=== PATIENT | female | born 1950 | race Caucasian/White ===

== ENCOUNTER 2017-04-17 14:53 | Inpatient (IN) | payer MEDICARE, OTHER ==
[~2017-04-17] VITALS: Ht 170.2 cm; Wt 132.3 kg
[2017-05-03] MEDS ORDERED: ASPI81CH7 CHEW (09:44)
[2017-05-03] MEDS ORDERED: ATOR20TA15 PO (09:44)
[2017-05-03] MEDS ORDERED: DOXE50CA3 PO (09:44)
[2017-05-03] MEDS ORDERED: BACL10TA PO (09:44)
[2017-05-03] MEDS ORDERED: COUM7.5T PO (09:44)
[2017-05-03] MEDS ORDERED: CYCL1TAB29 PO (09:47)
[2017-05-03] MEDS ORDERED: FLUT50SP EACH NARE (09:47)
[2017-05-03] MEDS ORDERED: FLAX10002 PO (09:47)
[2017-05-03] MEDS ORDERED: ENAL20TA PO (09:47)
[2017-05-03] MEDS ORDERED: SODIUM CHLOR 0.9% 250 ML INJ 250 ML ONE (09:48)
[2017-05-03] MEDS ORDERED: VANCOMYCIN HCL 1000 MG VIAL ONE (09:49)
[2017-05-03] MEDS ORDERED: LACTATED RINGER'S 1000 ML INJ 1,000 ML ONE (09:49)
[2017-05-03] MEDS ORDERED: POTA-255 PO (09:54)
[2017-05-03] MEDS ORDERED: MONT10TA2 PO (09:54)
[2017-05-03] MEDS ORDERED: HYDR-3535 PO (09:54)
[2017-05-03] MEDS ORDERED: NIAC500T67 PO (09:54)
[2017-05-03] MEDS ORDERED: MELA1TAB40 (09:54)
[2017-05-03] MEDS ORDERED: BENA25CA4 PO (09:54)
[2017-05-03] MEDS ORDERED: BUPR150CR PO (09:54)
[2017-05-03] MEDS ORDERED: FERR65TA2 PO (09:54)
[2017-05-03] MEDS ORDERED: ceFAZolin 2 GM PREMIX 50 ML ONE (09:55)
[2017-05-03] MEDS ORDERED: GENTAMICIN SULFATE 80 MG/2 ML VIAL ONE ×3 (09:56→10:07)
[2017-05-03 10:00] VITALS: BP 140/86; PULSE 82; RESP 24; TEMP 97.4; O2SAT 97
[2017-05-03] MEDS ORDERED: ROPIVACAINE PERI-ARTICULAR INJECTION. P-ARTICULR SCH ×5 (10:30)
[2017-05-03] MEDS ORDERED: ceFAZolin 2 GM PREMIX 50 ML IV SCH (10:30)
[2017-05-03] MEDS ORDERED: VANCOMYCIN 1000 MG/NS 250 ML (for <70 kg) IV SCH ×2 (10:30)
[2017-05-03] MEDS ORDERED: CHLORHEXIDINE GLUCONATE 4% SOLN 120 ML BTL TOPICAL SCH (10:30)
[2017-05-03] MEDS ORDERED: ACETAMINOPHEN 1000 MG/100 ML VIAL IV ONE (10:41)
[2017-05-03] MEDS ORDERED: MIDAZOLAM HCL 2 MG/2 ML VIAL ONE ×2 (10:41→13:46)
[2017-05-03] MEDS ORDERED: FAMOTIDINE 20 MG/2 ML VIAL ONE (10:42)
[2017-05-03] MEDS ORDERED: METOPROLOL TARTRATE 25 MG TAB PO PRN (10:45)
[2017-05-03] MEDS ORDERED: LACTATED RINGER'S 1000 ML IV PRN (10:45)
[2017-05-03] MEDS ORDERED: INSULIN HUMAN REGULAR 1,000 UNITS/10 ML VIAL SQ PRN (10:45)
[2017-05-03] MEDS ORDERED: SODIUM CHLORID 0.9% 500 ML IV PRN (10:45)
[2017-05-03] MEDS ORDERED: POVIDONE IODINE 5% (ANTISEPSIS KIT) 4 APPLICATIONS EACH NARE PRN (10:45)
[2017-05-03] MEDS ORDERED: CHLORHEXIDINE GLUCONATE 2 % 1 PACK (2 CLOTHS) TOPICAL PRN (10:45)
[2017-05-03] MEDS ORDERED: BUPIVACAINE LIPOSOME PF 1.3% 20 ML VIAL ONE (11:03)
[2017-05-03] MEDS ORDERED: ePHEDrine/NS 25 MG/5 ML SYR IV ONE (13:21)
[2017-05-03] MEDS ORDERED: NEOSTIGMINE 3 MG/3 ML SYR IV ONE (13:21)
[2017-05-03] MEDS ORDERED: PROPOFOL 200 MG/20 ML AMP IV ONE (13:21)
[2017-05-03] MEDS ORDERED: PHENYLEPH/NS 1000 MCG/10 ML SYR IV ONE (13:22)
[2017-05-03] MEDS ORDERED: LACTATED RINGER'S 1000 ML INJ 1,000 ML IV ONE (13:22)
[2017-05-03] MEDS ORDERED: ONDANSETRON HCL 4 MG/2 ML VIAL IV PUSH ONE (13:22)
[2017-05-03] MEDS ORDERED: Post-op Orders (for Pharmacy) MISC XX ONE (13:35)
--- NOTE | 2017-05-03 13:40 | HHI.PR ---
Immediate Post Op Note Procedure Date: May 03, 2017 Pre Op Diagnosis: L Knee Severe OA Post Op Diagnosis: Same Surgeon: Renato Dixon MD Supervisor Inspection Room(s): Heather Wesley PA-C Procedure: L TKR Complications: None Specimen(s) removed: None Estimated blood loss: <50 cc Anesthesia: General, Regional Block, Local Drains: Hemovac Patient to: PACU Patient Condition: Good Implant/Devices: SEE IMPLANT LOG (if applicable) Date/Time of Procedure: SEE SURGICAL CARE RECORD Renato Dixon MD May 03, 2017 13:40
[2017-05-03] MEDS: LACTATED RINGER'S 1000 ML INJ 1,000 ML IV SCH (13:43)
[2017-05-03] MEDS ORDERED: SODIUM CHLORIDE 0.9% FLUSH 5 ML FLUSH IVF PRN (13:45)
[2017-05-03] MEDS ORDERED: ALUMINUM/MAGNESIUM/SIMETH 30 ML CUP PO PRN (13:45)
[2017-05-03] MEDS ORDERED: ONDANSETRON HCL 4 MG/2 ML VIAL IVP PRN (13:45)
[2017-05-03] MEDS: SODIUM CHLORIDE 0.9% FLUSH 5 ML FLUSH IVF SCH ×2 (13:45→20:57)
[2017-05-03] MEDS ORDERED: ACETAMINOPHEN/HYDROcodone 325 MG/10 MG TAB PO PRN (13:45)
[2017-05-03] MEDS ORDERED: MORPHINE SULFATE 8 MG/ML INJ IM PRN (13:45)
[2017-05-03] MEDS ORDERED: fentaNYL CITRATE 250 MCG/5 ML AMP ONE (13:46)
[2017-05-03] MEDS ORDERED: WALKER WHEELS/F1 MIS (13:50)
[2017-05-03] MEDS ORDERED: CPMMACHINE (13:50)
[2017-05-03] MEDS ORDERED: BEDSIDE COMMODE1 MI1 (13:50)
[2017-05-03] MEDS ORDERED: DO NOT ADM ANY ANTICOAGULANT DRUGS PRN (14:15)
--- NOTE | 2017-05-03 14:52 | RADRPT ---
EXAM DATE/TIME: 05/03/2017 13:56 [place] COMPARISON: No previous studies available for comparison. INDICATIONS : Left total knee replacement. MEDICAL HISTORY : None. SURGICAL HISTORY : None. ENCOUNTER: Initial ACUITY: 1 day PAIN SCORE: 0/10 LOCATION: Left knee. FINDINGS: The patient is status post left total knee arthroplasty with prosthesis in good position. There is n o acute fracture or dislocation. CONCLUSION: Status post left total knee arthroplasty with prosthesis in good position. Hermelindo Dominguez MD on May 03, 2017 at 14:46 Board Certified Radiologist. This report was verified electronically.
[2017-05-03] MEDS ORDERED: *morphine SULFATE 8 MG/ML PERIprocedure ONLY ONE (15:08)
[2017-05-03 17:30] VITALS: BP 128/65; PULSE 88; RESP 18; TEMP 97.2; O2SAT 95
--- NOTE | 2017-05-03 17:52 | PD.CONS ---
[facility] By [facility] Care Physician Raúl Damon DO Diagnoses: History of Present Illness Mrs. Barfield is a 66 year old female. She is seen status post Left Knee TKA. Thus far she is doing well post op without nausea, vomiting, or lack of pain control. She has osteoarthritis at baseline. Other medical conditions are CKD3 , HTN, and Hyperlipidemia. She reports a surgical history of hysterectomy, tonsillectomy, right hand surgery and left elbow/arm surgery. No smoking, no lung or heart disease, no alcohol abuse and a family history of CAD. No complaints when seen. Review of Systems Constitutional: DENIES: Fatigue, Fever, Chills Eyes: DENIES: Blurred vision, Diplopia Ears, nose, mouth, throat: DENIES: Hearing loss, Vertigo Respiratory: DENIES: Cough, Wheezing, Shortness of breath Cardiovascular: DENIES: Palpitations, Syncope Gastrointestinal: DENIES: Abdominal pain, Black stools, Bloody stools Musculoskeletal: COMPLAINS OF: Joint pain Integumentary: DENIES: Abnormal pigmentation Hematologic/lymphatic: DENIES: Bruising Immunologic/allergic: DENIES: Eczema Neurologic: DENIES: Abnormal gait, Headache Psychiatric: DENIES: Anxiety, Confusion Past Family Social History Allergies: Coded Allergies: Neosporin (Verified Allergy, Severe, blisters, 05/03/17) Sulfa (Verified Allergy, Severe, rash, 05/03/17) Past Medical History CKD3 HTN Hyperlipidemia Osteoarthritis Past Surgical History Tonsillectomy Hysterectomy Left Elbow/Arm Right Hand Left Knee TKA (today) Reported Medications Reported Meds & Active Scripts Active Reported Wellbutrin SR 12 HR (Bupropion HCl) 150 Mg Tab 150 Mg PO HS Benadryl Allergy (Diphenhydramine HCl) 25 Mg Cap 1 Tab PO HS Singulair (Montelukast Sodium) 10 Mg Tab 10 Mg PO HS Potassium (Potassium Gluconate) 600 Mg Tablet 1 Tab PO DAILY Niacin (Niacinamide) 500 Mg Tablet 1 Tab PO DAILY Melatonin 1 Mg Tab.subl Hm Iron (Ferrous Sulfate Dried) 65 Mg Tab 65 Mg PO BID Lortab (Hydrocodone-Acetaminophen) 10-325 Mg Tab 1 Tab PO BID PRN Fluticasone Nasal Hubertus 50 Mcg/Act Naspr 50 Mcg EACH NARE HS 50 mcg/spray Flexeril (Cyclobenzaprine HCl) 10 Mg Tab 10 Mg PO TID Flax Seed Oil 1000 mg (Flaxseed (Linseed)) 1 Cap Cap 1,000 Mg PO DAILY Enalapril (Enalapril Maleate) 20 Mg Tab 20 Mg PO HS Doxepin (Doxepin HCl) 50 Mg Cap 100 Mg PO HS Coumadin (Warfarin) 7.5 Mg Tab 7.5 Mg PO ONCE Baclofen 10 Mg Tab 10 Mg PO TID Aspirin Children's (Aspirin) 81 Mg Chew 81 Mg CHEW DAILY Atorvastatin (Atorvastatin Calcium) 20 Mg Tab 20 Mg PO HS Active Ordered Medications Administered Medications Medications (Trade) Dose Ordered Sig/Logan Route PRN Reason Start Time Stop Time Status Last Admin Dose Admin Ropivacaine/ Ketorolac Tromethamine/ Epinephrine HCl/ Clonidine/Sodium Chloride (Naropin 0.5% Pf Inj/Toradol Inj/ Adrenalin (1:1000) Inj/ Duraclon Inj/NS Inj) 100 ml @ 200 mls/hr ONCE P-ARTICULR 05/03/17 10:30 05/04/17 10:29 05/03/17 12:06 Family History CAD Social History No Smoking No alcohol abuse No drug abuse Physical Exam Vital Signs Vital Signs Date Time Temp Pulse Resp B/P Pulse Ox O2 Delivery O2 Flow Rate FiO2 05/03/17 16:38 97.6 88 19 105/56 100 Nasal Cannula 2 05/03/17 16:06 89 19 133/60 98 Nasal Cannula 2 05/03/17 15:00 79 18 124/81 99 Nasal Cannula 2 05/03/17 14:30 79 20 126/83 100 Nasal Cannula 2 05/03/17 14:15 75 12 124/66 100 Nasal Cannula 2 05/03/17 14:00 77 16 123/63 100 Nasal Cannula 2 05/03/17 13:45 83 17 125/63 100 Nasal Cannula 2 05/03/17 13:38 97.5 84 17 116/58 100 Nasal Cannula 2 05/03/17 10:00 97.4 82 24 140/86 97 Physical Exam GENERAL: NAD, A&Ox3 SKIN: Warm and dry. HEAD: Normocephalic. EYES: No scleral icterus. No injection or drainage. NECK: Supple, trachea midline. No JVD or lymphadenopathy. CARDIOVASCULAR: Regular rate and rhythm without murmurs, gallops, or rubs. RESPIRATORY: Breath sounds equal bilaterally. No accessory muscle use. GASTROINTESTINAL: Abdomen soft, non-tender, nondistended. MUSCULOSKELETAL: No cyanosis, or edema. Left knee bandaged BACK: Nontender without obvious deformity. No CVA tenderness. Laboratory Laboratory Tests Test 05/03/17 09:39 Blood Type AB POSITIVE Antibody Screen NEGATIVE Crossmatch Leukocyte-Reduced Red Blood Cells Blood Bank Comment Imaging Last Impressions Knee X-Ray 05/03/17 1343 Signed Impressions: Service Date/Time: , May 03, 2017 13:56 - CONCLUSION: Status post left total knee arthroplasty with prosthesis in good position. Hermelindo Dominguez MD Assessment and Plan Problem List: (1) Osteoarthritis of left knee ICD Code: M17.12 Status: Acute (2) Osteoarthritis ICD Code: M19.90 Status: Acute (3) HTN (hypertension) ICD Code: I10 Status: Acute (4) HLD (hyperlipidemia) ICD Code: E78.5 Status: Acute (5) CKD (chronic kidney disease), stage III ICD Code: N18.3 Status: Acute Assessment and Plan Assessment and Plan 66 year old female, post op Left TKA post op Left TKA PRN pain treatment Ortho following PT planned CBC in AM CKD3 Follow renal function BMP in AM HTN Resume baseline treatments Follow BP Presently borderline low, so no PRN treatments needed at this time Hyperlipidemia Resume baseline treatments Follow as an outpatient DVT Prophylaxis Didier Dixon MD May 03, 2017 17:52
[2017-05-03] MEDS: BACLOFEN 10 MG TAB PO SCH (18:06)
[2017-05-03] MEDS: CYCLOBENZAPRINE HCL 10 MG TAB PO SCH (18:07)
[2017-05-03] MEDS: ACETAMINOPHEN/HYDROcodone 325 MG/10 MG TAB PO PRN (18:09)
[2017-05-03 19:00] VITALS: BP 131/75; PULSE 92; RESP 17; TEMP 96.9; O2SAT 95
[2017-05-03] MEDS: FLUTICASONE PROPIONATE 50 MCG/ACT 16 GM NASAL SPRAY EACH NARE SCH (20:57)
[2017-05-03] MEDS: DOXEPIN HCL 50 MG CAP PO SCH (20:58)
[2017-05-03] MEDS: FERROUS SULFATE 325 MG (65 MG ELEMENTAL IRON) TAB PO SCH (20:58)
[2017-05-03] MEDS: MONTELUKAST SODIUM 10 MG TAB PO SCH (20:58)
[2017-05-03] MEDS: ATORVASTATIN 20 MG TAB PO SCH (20:58)
[2017-05-03] MEDS: buPROPion HCL 150 MG SUSTAINED RELEASE TAB PO SCH (20:58)
[2017-05-03] MEDS: ENALAPRIL MALEATE 10 MG TAB PO SCH (20:58)
[2017-05-03] MEDS: diphenhydrAMINE HCL 25 MG CAP PO SCH (20:58)
[2017-05-04] VITALS (8 sets, daily range): BP systolic 91–143; BP diastolic 44–62; PULSE 80–100; RESP 16–20; TEMP 96.6–97.9; O2SAT 95–100
[2017-05-04] MEDS: ACETAMINOPHEN/HYDROcodone 325 MG/10 MG TAB PO PRN ×4 (00:09→20:37)
[2017-05-04] MEDS: ZOLPIDEM TARTRATE 5 MG TAB PO PRN ×2 (00:11→23:15)
[2017-05-04] MEDS: LACTATED RINGER'S 1000 ML INJ 1,000 ML IV SCH ×3 (02:13→21:48)
--- NOTE | 2017-05-04 06:55 | PD.ORT.PN ---
Subjective Subjective Remarks pt doing well, mild post op left knee pain was able get out of bed 3 times yesterday Objective Vitals Vital Signs Date Time Temp Pulse Resp B/P Pulse Ox O2 Delivery O2 Flow Rate FiO2 05/04/17 04:00 97.0 88 18 107/54 96 05/04/17 00:00 97.9 87 16 106/51 96 05/03/17 19:00 96.9 92 17 131/75 95 05/03/17 17:30 97.2 88 18 128/65 95 05/03/17 16:38 97.6 88 19 105/56 100 Nasal Cannula 2 05/03/17 16:06 89 19 133/60 98 Nasal Cannula 2 05/03/17 15:00 79 18 124/81 99 Nasal Cannula 2 05/03/17 14:30 79 20 126/83 100 Nasal Cannula 2 05/03/17 14:15 75 12 124/66 100 Nasal Cannula 2 05/03/17 14:00 77 16 123/63 100 Nasal Cannula 2 05/03/17 13:45 83 17 125/63 100 Nasal Cannula 2 05/03/17 13:38 97.5 84 17 116/58 100 Nasal Cannula 2 05/03/17 10:00 97.4 82 24 140/86 97 I/O 05/03/17 05/03/17 05/03/17 05/04/17 05/04/17 05/04/17 07:00 15:00 23:00 07:00 15:00 23:00 Intake Total 1000 ml 1179 ml 480 ml Output Total 50 ml 90 ml Balance 950 ml 1089 ml 480 ml Intake Oral 600 ml 480 ml IV Total 579 ml Other 1000 ml Output Urine Total 0 ml Drainage Total 90 ml Estimated Blood Loss 50 ml # Voids 1 2 # Bowel Movements 0 0 Imaging Last 24 hours Impressions Knee X-Ray 05/03/17 1343 Signed Impressions: Service Date/Time: April 13:56 - CONCLUSION: Status post left total knee arthroplasty with prosthesis in good position. Hermelindo Dominguez MD Objective Remarks left knee dressing dry and intact no calf tenderness, neg homans sign Assessment & Plan Assessment and Plan POD #1 s/p L TKA PT-WBAT, CPM low dose coumadin for dvt prop-check INR on d/c for coumadin dose labs still pending this AM anticipate discharge home with [facility] on Sunday Heather Wesley May 04, 2017 06:55
--- NOTE | 2017-05-04 06:57 | HHI.FF ---
Face to Face Verification Diagnosis: (1) Osteoarthritis of left knee Physical Therapy Gait training, Transfer training, bed to chair Knee: Total knee, Protocol: Left, Full weight bearing Canvas Knee Splint: Other (while sleeping at night for first 4 weeks ) Right LE Weight Bearing: WB as tolerated Left LE Weight Bearing: WB as tolerated Nursing RN: 3 days/week x 2 weeks Nursing: Dressing changes (clean incision with alcohol and apply dry, sterile dressing. Brett will be removed in office ) Additional Instructions Pt/INR q Sunday and call/text results to Heather GUZMAN [phone] Goal INR 1.5-1.8 I have seen patient Saige Barfield on 05/04/17. My clinical findings support the need for the requested home health care services because: High risk of falls I certify that my clinical findings support that this patient is homebound because: Post-op weakness Heather Wesley May 04, 2017 06:57
[2017-05-04 07:11] LABS: HEMATOCRIT 26.9 % (35.0-46.0); MEAN CELL VOLUME 92.3 FL (80.0-100.0); MEAN CORPUSCULAR HEMOGLOBIN 31.8 PG (27.0-34.0); MEAN CORPUSCULAR HGB CONC 34.4 % (32.0-36.0); PLATELET COUNT 184 TH/MM3 (150-450); RED BLOOD COUNT 2.91 MIL/MM3 (4.00-5.30); RED CELL DISTRIBUTION WIDTH 13.7 % (11.6-17.2); REVIEW FLAG FINAL; WHITE BLOOD COUNT 6.7 TH/MM3 (4.0-11.0)
[2017-05-04 07:14] LABS: INTERNATIONAL NORMALIZED RATIO 1.1 RATIO; PROTHROMBIN TIME - PATIENT 12.2 SEC (9.8-11.6)
[2017-05-04 07:35] LABS: BICARBONATE 26.2 MEQ/L (21.0-32.0); POTASSIUM 3.9 MEQ/L (3.5-5.1)
[2017-05-04] MEDS: SODIUM CHLORIDE 0.9% FLUSH 5 ML FLUSH IVF SCH ×2 (09:00→20:39)
[2017-05-04] MEDS: FERROUS SULFATE 325 MG (65 MG ELEMENTAL IRON) TAB PO SCH ×2 (09:20→20:36)
[2017-05-04] MEDS: CYCLOBENZAPRINE HCL 10 MG TAB PO SCH ×3 (09:21→16:49)
[2017-05-04] MEDS: BACLOFEN 10 MG TAB PO SCH ×3 (09:21→16:49)
[2017-05-04] MEDS ORDERED: WARFARIN SOD 5 MG TAB PO SCH (14:00)
--- NOTE | 2017-05-04 15:25 | HHI.PR ---
Subjective Remarks Doing well today. Hemoglobin 9.3. Creatinine is 1.3. Patient has no new complaints. She is doing well with physical therapy. Objective Vital Signs Date Time Temp Pulse Resp B/P Pulse Ox O2 Delivery O2 Flow Rate FiO2 05/04/17 13:46 105/56 05/04/17 12:00 96.9 90 20 91/44 95 05/04/17 08:00 96.6 84 20 105/50 99 05/04/17 07:56 98 21 05/04/17 04:00 97.0 88 18 107/54 96 05/04/17 00:00 97.9 87 16 106/51 96 05/03/17 19:00 96.9 92 17 131/75 95 05/03/17 17:30 97.2 88 18 128/65 95 05/03/17 16:38 97.6 88 19 105/56 100 Nasal Cannula 2 05/03/17 16:06 89 19 133/60 98 Nasal Cannula 2 I/O 05/03/17 05/03/17 05/03/17 05/04/17 05/04/17 05/04/17 07:00 15:00 23:00 07:00 15:00 23:00 Intake Total 1000 ml 1179 ml 872 ml 60 ml Output Total 50 ml 90 ml 30 ml Balance 950 ml 1089 ml 842 ml 60 ml Intake Oral 600 ml 480 ml IV Total 579 ml 392 ml 60 ml Other 1000 ml Output Urine Total 0 ml Drainage Total 90 ml 30 ml Estimated Blood Loss 50 ml # Voids 1 2 # Bowel Movements 0 0 Result Diagram: 05/04/17 0654 05/04/17 0654 Imaging Last Impressions Knee X-Ray 05/03/17 1343 Signed Impressions: Service Date/Time: April 13:56 - CONCLUSION: Status post left total knee arthroplasty with prosthesis in good position. Hermelindo Dominguez MD Objective Remarks GENERAL: NAD, A&Ox3 HEAD: Normocephalic. NECK: Supple, trachea midline. No lymphadenopathy. EYES: No scleral icterus. No injection or drainage. CARDIOVASCULAR: Regular rate and rhythm without murmurs, gallops, or rubs. RESPIRATORY: Breath sounds equal bilaterally. No accessory muscle use. GASTROINTESTINAL: Abdomen soft, non-tender, nondistended. MUSCULOSKELETAL: No cyanosis, or edema. Left knee bandaged. SKIN: Warm and dry. NEURO: No focal neurological deficitis. Medications and IVs Administered Medications Medications (Trade) Dose Ordered Sig/Logan Route PRN Reason Start Time Stop Time Status Last Admin Dose Admin Atorvastatin Calcium (Lipitor) 20 mg HS PO 05/03/17 21:00 05/03/17 20:58 Baclofen (Lioresal) 10 mg TID PO 05/03/17 18:00 05/04/17 09:21 Bupropion HCl (Wellbutrin Sr) 150 mg HS PO 05/03/17 21:00 05/03/17 20:58 Cyclobenzaprine HCl (Flexeril) 10 mg TID PO 05/03/17 18:00 05/04/17 09:21 Diphenhydramine HCl (Benadryl) 25 mg HS PO 05/03/17 21:00 05/03/17 20:58 Doxepin HCl (SINEquan) 100 mg HS PO 05/03/17 21:00 05/03/17 20:58 Enalapril Maleate (Vasotec) 20 mg HS PO 05/03/17 21:00 05/03/17 20:58 Ferrous Sulfate (Ferrous Sulfate) 325 mg BID PO 05/03/17 21:00 05/04/17 09:20 Fluticasone Propionate (Flonase Arun Spr) 1 spray HS EACH NARE 05/03/17 21:00 05/03/17 20:57 Montelukast Sodium (Singulair) 10 mg HS PO 05/03/17 21:00 05/03/17 20:58 IV Flush (NS Flush) 2 ml BID IVF 05/03/17 13:45 05/04/17 09:00 Acetaminophen/ Hydrocodone Bitart (Machias 10-325 Mg) 2 tab Q6H PRN PO PAIN SCALE 5 TO 10 05/03/17 13:45 05/04/17 13:12 Zolpidem Tartrate (Ambien) 5 mg HS PRN PO SLEEP 05/03/17 13:45 05/04/17 00:11 A/P Problem List: (1) Osteoarthritis ICD Code: M19.90 (2) HTN (hypertension) ICD Code: I10 (3) CKD (chronic kidney disease), stage III ICD Code: N18.3 (4) Osteoarthritis of left knee ICD Code: M17.12 (5) HLD (hyperlipidemia) ICD Code: E78.5 Assessment and Plan Assessment and Plan 66 year old female, post op Left TKA. Doing well with PT. Renal function is good. Blood loss is as expected. No transfusion needed at this point. post op Left TKA PRN pain treatment Ortho following PT planned Hemoglobin stable. CKD3 Follow renal function BMP in AM HTN Resume baseline treatments Follow BP Presently borderline low, so no PRN treatments needed at this time Hyperlipidemia Resume baseline treatments Follow as an outpatient DVT Prophylaxis Didier Dixon MD May 04, 2017 15:25
[2017-05-04] MEDS ORDERED: WARFARIN SOD 7.5 MG TAB PO ONE (16:00)
[2017-05-04] MEDS: buPROPion HCL 150 MG SUSTAINED RELEASE TAB PO SCH (20:36)
[2017-05-04] MEDS: FLUTICASONE PROPIONATE 50 MCG/ACT 16 GM NASAL SPRAY EACH NARE SCH (20:36)
[2017-05-04] MEDS: MONTELUKAST SODIUM 10 MG TAB PO SCH (20:37)
[2017-05-04] MEDS: DOXEPIN HCL 50 MG CAP PO SCH (20:37)
[2017-05-04] MEDS: ATORVASTATIN 20 MG TAB PO SCH (20:37)
[2017-05-04] MEDS: diphenhydrAMINE HCL 25 MG CAP PO SCH (20:38)
[2017-05-04] MEDS: ENALAPRIL MALEATE 10 MG TAB PO SCH (20:38)
[2017-05-05] VITALS (7 sets, daily range): BP systolic 100–130; BP diastolic 44–80; PULSE 87–102; RESP 17–18; TEMP 97.3–99.4; O2SAT 95–100
[2017-05-05] MEDS: ACETAMINOPHEN/HYDROcodone 325 MG/10 MG TAB PO PRN ×3 (05:18→18:09)
[2017-05-05 06:20] LABS: HEMATOCRIT 23.4 % (35.0-46.0)
[2017-05-05 06:21] LABS: REVIEW FLAG FINAL
[2017-05-05 06:31] LABS: INTERNATIONAL NORMALIZED RATIO 1.1 RATIO
[2017-05-05] MEDS: FERROUS SULFATE 325 MG (65 MG ELEMENTAL IRON) TAB PO SCH ×2 (08:39→21:03)
[2017-05-05] MEDS: BACLOFEN 10 MG TAB PO SCH ×3 (08:39→18:09)
[2017-05-05] MEDS: MAGNESIUM HYDROXIDE SUSP 30 ML CUP PO SCH ×4 (08:39→21:02)
[2017-05-05] MEDS: CYCLOBENZAPRINE HCL 10 MG TAB PO SCH ×3 (08:39→18:09)
[2017-05-05] MEDS: SENNOSIDES 8.6 MG TAB PO SCH ×4 (08:40→21:03)
[2017-05-05] MEDS: SODIUM CHLORIDE 0.9% FLUSH 5 ML FLUSH IVF SCH ×2 (08:43→21:04)
--- NOTE | 2017-05-05 09:38 | HHI.PR ---
Subjective Remarks No complaints today. Patient reports she is now able to get out of bed on her own and back into bed on her own. Tentative plan for discharge tomorrow. Objective Vital Signs Date Time Temp Pulse Resp B/P Pulse Ox O2 Delivery O2 Flow Rate FiO2 05/05/17 06:10 18 05/05/17 04:00 98.6 97 17 121/59 95 05/05/17 00:00 99.4 96 17 104/44 100 05/04/17 19:00 97.7 100 18 143/62 100 05/04/17 16:00 97.3 80 20 102/62 96 05/04/17 13:46 105/56 05/04/17 12:00 96.9 90 20 91/44 95 I/O 05/04/17 05/04/17 05/04/17 05/05/17 05/05/17 05/05/17 07:00 15:00 23:00 07:00 15:00 23:00 Intake Total 872 ml 540 ml 560 ml 480 ml Output Total 30 ml Balance 842 ml 540 ml 560 ml 480 ml Intake Oral 480 ml 480 ml 480 ml 480 ml IV Total 392 ml 60 ml 80 ml Drainage Total 30 ml # Voids 2 3 3 3 # Bowel Movements 0 0 0 0 Result Diagram: 05/05/17 0559 05/04/17 0654 Objective Remarks GENERAL: NAD, A&Ox3 HEAD: Normocephalic. NECK: Supple, trachea midline. No lymphadenopathy. EYES: No scleral icterus. No injection or drainage. CARDIOVASCULAR: Regular rate and rhythm without murmurs, gallops, or rubs. RESPIRATORY: Breath sounds equal bilaterally. No accessory muscle use. GASTROINTESTINAL: Abdomen soft, non-tender, nondistended. MUSCULOSKELETAL: No cyanosis, or edema. Left knee bandaged. SKIN: Warm and dry. NEURO: No focal neurological deficitis. A/P Problem List: (1) Osteoarthritis ICD Code: M19.90 (2) HTN (hypertension) ICD Code: I10 (3) CKD (chronic kidney disease), stage III ICD Code: N18.3 (4) Osteoarthritis of left knee ICD Code: M17.12 (5) HLD (hyperlipidemia) ICD Code: E78.5 Assessment and Plan Assessment and Plan 66 year old female, post op Left TKA. Doing well with PT. follow-up BMP tomorrow to evaluate kidney function. Post op Left TKA PRN pain treatment Ortho following PT planned Hemoglobin stable. CKD3 Follow renal function BMP in AM HTN Resume baseline treatments Follow BP Presently borderline low, so no PRN treatments needed at this time Hyperlipidemia Resume baseline treatments Follow as an outpatient DVT Prophylaxis Didier Dixon MD May 05, 2017 09:38
--- NOTE | 2017-05-05 10:31 | MP ---
cc: DARRIN CHU MD, AHMAD M.D. MAI, CHRISTOPHER M.D. Ortolani A. M.D. GILLESPY, ALBERT W. M.D. WATRY, STEVEN C. DO DATE OF SURGERY: 05/03/2017 PREOPERATIVE DIAGNOSIS: Left knee severe tricompartment osteoarthritis. POSTOPERATIVE DIAGNOSIS: Left knee severe tricompartment osteoarthritis. Morbid obesity. OPERATION: Left total knee arthroplasty - Biomet vanguard. SPECIMENS; Sent. ESTIMATED BLOOD LOSS: Blood loss is less than 50 cc ANESTHESIA General, regional abductor canal block, intra-articular block. COMPLICATIONS: NONE. DRAINS: Two. TOURNIQUET TIME: 52 minutes at 250 mmHg. CONDITION: 08/07 to tourniquet time is 50 52 minutes at 250 mmHg condition stable PLAN Activity as per orders. PROCEDURE My market research assistant ANGE Romero was present for entire surgical case. She was medically necessary for the case because of the complexity case and to facilitate the performance of the procedure. The TUFTING CREELER at back table did not have a skill set for this case to manipulate the instruments e.g. the multiple different soft tissue tractors, plantar permanent plans including bone cement. The patient was operating room and had satisfactory regional abductor canal anesthesia followed by general anesthesia by the department of Anesthesia. The left lower extremity was prepped and draped in usual sterile manner. Because of the patients morbid obesity, great care was made to protect all pressure points. The left lower extremity was prepped and draped in usual sterile manner. The extremity was exsanguinated by elevation, the tourniquet was inflated to 250 mmHg. Anterior exposure knee was made. Primary capsulotomy was performed. Patient found to have severe tricompartmental osteoarthritis involving the knee. The patient also had a mild degree of synovitis. The main portion medial lateral meniscus were performed the prepatellar fat pad was surgically excised. The cruciate ligament was already missing. A posterior cruciate ligament was preserved. Using the Biomet Bankart total knee arthroplasty system IM guide was used distal femur to accept the 62.5 mm femoral component, amount of time was used for the tibia to accept a 71 mm tibial component. The undersurface of the patella was removed to accept 31 mm. Three-pronged prosthesis. A trial reduction was made. With a 12 mm insert. The patient was have excellent balance in the with both flexion/extension. All trial components were removed. Preparation for cementing was made. The knee was initially injected with 100 cc of local anesthesia by myself provided by the pharmacy department. The knee was irrigated with copious amounts of sterile saline antibiotic solution. Two packages of Palacos bone cement was used first the tibial component was cemented which is a #71 tibial component followed by the femoral component which is a 62.5 mm left femoral component. All excess bone cement was removed. Undersurface of patella was cemented using an 31-mm three-pronged patellar prosthesis. Bone cement allowed to harden for 12.5 minutes. Tourniquet deflated. All bleeders coagulate wound itself was dry. A 12 x 71 mm tibial polyethylene plastic was assembled onto the tibial tray. Appropriate clipping mechanism was used to assemble the polyethylene plastic onto the tibial tray. The patient again found to have excellent balance. Approximately 2.5 inch lateral retinacular release was performed with this the patella found to track well within the patellofemoral compartment. The wound was closed over eighth inch Hemovac drain wound itself was dry. It was closed in multiple layers with the capsule and extensor mechanism is layered was #2 Tycron suture. Subcutaneous layers with 0 Vicryl 2-0 Vicryl. Skin approximated with skin kaley. Sterile dressings were applied. The patient tolerated the procedure well arrived room in stable and satisfactory condition. MD BELINDA Drew/stormy /1:36 PM /9:47 AM
--- NOTE | 2017-05-05 12:51 | PD.ORT.PN ---
Subjective Subjective Remarks no CP/SOB. no issues Objective Vitals Vital Signs Date Time Temp Pulse Resp B/P Pulse Ox O2 Delivery O2 Flow Rate FiO2 05/05/17 08:00 98.6 94 18 100/55 97 05/05/17 06:10 18 05/05/17 04:00 98.6 97 17 121/59 95 05/05/17 00:00 99.4 96 17 104/44 100 05/04/17 19:00 97.7 100 18 143/62 100 05/04/17 16:00 97.3 80 20 102/62 96 05/04/17 13:46 105/56 I/O 05/04/17 05/04/17 05/04/17 05/05/17 05/05/17 05/05/17 07:00 15:00 23:00 07:00 15:00 23:00 Intake Total 872 ml 540 ml 560 ml 480 ml Output Total 30 ml Balance 842 ml 540 ml 560 ml 480 ml Intake Oral 480 ml 480 ml 480 ml 480 ml IV Total 392 ml 60 ml 80 ml Drainage Total 30 ml # Voids 2 3 3 3 # Bowel Movements 0 0 0 0 Result Diagram: 05/05/17 0559 05/04/17 0654 Other Results Laboratory Tests Test 05/05/17 05:59 Prothrombin Time 12.0 SEC (9.8-11.6) Prothromb Time International 1.1 RATIO Ratio Imaging Last 24 hours Impressions Knee X-Ray 05/03/17 1343 Signed Impressions: Service Date/Time: April 13:56 - CONCLUSION: Status post left total knee arthroplasty with prosthesis in good position. Hermelindo Dominguez MD Objective Remarks left knee dressing dry and intact no calf tenderness, neg homans sign Assessment & Plan Assessment and Plan POD #2 s/p L TKA PT-WBAT, CPM low dose coumadin for dvt prop-check INR on d/c for coumadin dose labs still pending this AM anticipate discharge home with [facility] on Sunday Alfredo Bardales Jr., MD May 05, 2017 12:50
[2017-05-05] MEDS: LACTATED RINGER'S 1000 ML INJ 1,000 ML IV SCH ×2 (15:43→21:09)
[2017-05-05] MEDS: WARFARIN SOD 5 MG TAB PO SCH (15:54)
[2017-05-05] MEDS: DOXEPIN HCL 50 MG CAP PO SCH (21:02)
[2017-05-05] MEDS: ATORVASTATIN 20 MG TAB PO SCH (21:02)
[2017-05-05] MEDS: ENALAPRIL MALEATE 10 MG TAB PO SCH (21:02)
[2017-05-05] MEDS: MONTELUKAST SODIUM 10 MG TAB PO SCH (21:02)
[2017-05-05] MEDS: buPROPion HCL 150 MG SUSTAINED RELEASE TAB PO SCH (21:03)
[2017-05-05] MEDS: diphenhydrAMINE HCL 25 MG CAP PO SCH (21:03)
[2017-05-05] MEDS: FLUTICASONE PROPIONATE 50 MCG/ACT 16 GM NASAL SPRAY EACH NARE SCH (21:04)
[2017-05-06] MEDS: ZOLPIDEM TARTRATE 5 MG TAB PO PRN (00:29)
[2017-05-06] MEDS: ACETAMINOPHEN/HYDROcodone 325 MG/10 MG TAB PO PRN ×3 (00:30→15:22)
[2017-05-06 04:45] VITALS: BP 105/62; PULSE 91; RESP 18; TEMP 97.7; O2SAT 95
[2017-05-06 06:19] LABS: HEMATOCRIT 24.6 % (35.0-46.0); MEAN CELL VOLUME 90.3 FL (80.0-100.0); MEAN CORPUSCULAR HEMOGLOBIN 30.2 PG (27.0-34.0); MEAN CORPUSCULAR HGB CONC 33.4 % (32.0-36.0); PLATELET COUNT 174 TH/MM3 (150-450); RED BLOOD COUNT 2.72 MIL/MM3 (4.00-5.30); RED CELL DISTRIBUTION WIDTH 13.9 % (11.6-17.2); REVIEW FLAG FINAL; WHITE BLOOD COUNT 7.6 TH/MM3 (4.0-11.0)
[2017-05-06 06:27] LABS: INTERNATIONAL NORMALIZED RATIO 1.3 RATIO; PROTHROMBIN TIME - PATIENT 14.3 SEC (9.8-11.6)
[2017-05-06 06:38] LABS: POTASSIUM 4.1 MEQ/L (3.5-5.1)
[2017-05-06 08:00] VITALS: BP 98/46; PULSE 85; RESP 18; TEMP 98.2; O2SAT 96
[2017-05-06] MEDS: SODIUM CHLORIDE 0.9% FLUSH 5 ML FLUSH IVF SCH (09:00)
[2017-05-06] MEDS: MAGNESIUM HYDROXIDE SUSP 30 ML CUP PO SCH ×2 (09:00→09:16)
[2017-05-06] MEDS: BACLOFEN 10 MG TAB PO SCH ×2 (09:00→13:00)
[2017-05-06] MEDS: SENNOSIDES 8.6 MG TAB PO SCH ×2 (09:00→09:16)
[2017-05-06] MEDS: CYCLOBENZAPRINE HCL 10 MG TAB PO SCH ×2 (09:00→13:00)
[2017-05-06] MEDS: FERROUS SULFATE 325 MG (65 MG ELEMENTAL IRON) TAB PO SCH (09:16)
--- NOTE | 2017-05-06 10:10 | HHI.PR ---
Subjective Remarks Transient low blood pressure this morning into the upper 80s systolic. Patient has been running in the lower 100s and upper 90s. Her enalapril was discontinued. Etiology for lower blood pressures is likely secondary to narcotic effect. She is medically stable for discharge today. Objective Vital Signs Date Time Temp Pulse Resp B/P Pulse Ox O2 Delivery O2 Flow Rate FiO2 05/06/17 08:00 98.2 85 18 98/46 96 05/06/17 04:45 97.7 91 18 105/62 95 05/05/17 23:50 98.2 87 18 106/68 96 05/05/17 19:50 98.5 102 18 130/59 96 05/05/17 19:17 Room Air 05/05/17 16:00 97.3 95 18 120/80 97 05/05/17 13:19 18 05/05/17 12:00 97.9 89 18 113/55 100 I/O 05/05/17 05/05/17 05/05/17 05/06/17 05/06/17 05/06/17 06:59 14:59 22:59 06:59 14:59 22:59 Intake Total 480 ml 1680 ml 480 ml Balance 480 ml 1680 ml 480 ml Intake Oral 480 ml 1680 ml 480 ml # Voids 3 6 1 # Bowel Movements 0 0 0 Result Diagram: 05/06/17 0554 05/06/17 0554 Objective Remarks GENERAL: NAD, A&Ox3 HEAD: Normocephalic. NECK: Supple, trachea midline. No lymphadenopathy. EYES: No scleral icterus. No injection or drainage. CARDIOVASCULAR: Regular rate and rhythm without murmurs, gallops, or rubs. RESPIRATORY: Breath sounds equal bilaterally. No accessory muscle use. GASTROINTESTINAL: Abdomen soft, non-tender, nondistended. MUSCULOSKELETAL: No cyanosis, or edema. Left knee bandaged. SKIN: Warm and dry. NEURO: No focal neurological deficitis. A/P Problem List: (1) Osteoarthritis ICD Code: M19.90 (2) HTN (hypertension) ICD Code: I10 (3) CKD (chronic kidney disease), stage III ICD Code: N18.3 (4) Osteoarthritis of left knee ICD Code: M17.12 (5) HLD (hyperlipidemia) ICD Code: E78.5 Assessment and Plan Assessment and Plan 66 year old female, post op Left TKA. Doing well with PT. follow-up BMP tomorrow to evaluate kidney function. Medically stable for discharge today. Patient instructed not to take blood pressure medications until her blood pressures returned to elevated states. She is okay for continuation of narcotics to treat her pain. Post op Left TKA PRN pain treatment Ortho following PT planned Hemoglobin stable. CKD3 Follow renal function BMP in AM HTN Resume baseline treatments Follow BP Presently borderline low, so no PRN treatments needed at this time Hyperlipidemia Resume baseline treatments Follow as an outpatient DVT Prophylaxis Lovenox Discharge planning Medically clear for discharge home today. Didier Malik MD May 06, 2017 10:10 am
[2017-05-06 12:00] VITALS: BP 105/69; PULSE 92; RESP 18; TEMP 97.4; O2SAT 97
[2017-05-06] MEDS: WARFARIN SOD 5 MG TAB PO SCH (15:21)
[2017-05-06 16:22] VITALS: RESP 18
[2017-05-06] MEDS: LACTATED RINGER'S 1000 ML INJ 1,000 ML IV SCH (16:43)
--- NOTE | 2017-05-14 08:21 | HHI.DS ---
Discharge Summary Admission Date May 03, 2017 at 09:09 Discharge Date: May 06, 2017 Admitting Diagnosis Left knee osteoarthritis Diagnosis: (1) Osteoarthritis of left knee Diagnosis: Principal Procedures L TKA Brief History This is a 66 year old female patient who presents with the following history. Patient complains of increasing left knee pain. She has tried weight loss, exercise, anti-inflammatories and analgesic medications. She has had continued knee pain that is now interfering with her ADLS. Imaging x-rays of the left knee show tri-compartment osteoarthritis, joint space narrowing PE at Discharge left knee dressing dry and intact no calf tenderness, neg homans sign Hospital Course Patient underwent satisfactory anaesthesia by the dept of anaesthesia. She underwent left total knee arthroplasty on the date of admission. She did well following the procedure. She was treated with low dose coumadin night before procedure and will continue with low dose coumadin for four weeks post operatively to try and prevent DVT. She was started with physical therapy full weight bearing and CPM machine on pod #1. She was also treated with knee high TEDs and sequentials during her stay. She was followed by medical for further evaluation of medical co-morbidities. She progressed well and was discharged home with [facility] on pod #3 in stable condition. Pt Condition on Discharge: Stable Discharge Disposition: Disch w/ Home Health Serv Discharge Instructions Diet Instructions: Coumadin (Warfarin) Diet Activities You Can Perform: Weight Bearing as Heather Avila May 14, 2017 08:21
== END 2017-05-06 18:47 | disposition home or self-care (01) | DRG 470 ==
LOC: HSDI 05-03 09:09 → N06B 05-03 16:50
PROVIDERS: ADMIT Orthopaedic Surgery Orthopaedic Surgery of the Spine; ATTEND Orthopaedic Surgery Orthopaedic Surgery of the Spine
PROC: 0QNF0ZZ Release Left Patella, Open Approach (ICD-10-PCS; 2017-05-03)
PROC: 3E0T3CZ (ICD-10-PCS; 2017-05-03)
PROC: 0SRD0J9 Replacement of Left Knee Joint with Synthetic Substitute, Cemented, Open Approach (ICD-10-PCS; principal; 2017-05-03 11:09)
DX: M17.12 Unilateral primary osteoarthritis, left knee (principal); N18.3 Chronic kidney disease, stage 3 (moderate); Z68.42 Body mass index [BMI] 45.0-49.9, adult; E66.01 Morbid (severe) obesity due to excess calories; I12.9 Hypertensive chronic kidney disease with stage 1 through stage 4 chronic kidney disease, or unspecified chronic kidney disease; E78.5 Hyperlipidemia, unspecified; J45.909 Unspecified asthma, uncomplicated; R03.1 Nonspecific low blood-pressure reading; F32.9 Major depressive disorder, single episode, unspecified; M65.862 Other synovitis and tenosynovitis, left lower leg; Z79.01 Long term (current) use of anticoagulants; Z88.2 Allergy status to sulfonamides; Z88.1 Allergy status to other antibiotic agents
CPT/HCPCS: 73560; 80048; 85014; 85018; 85027; 85610; 86850; 86891; 86900; 86901; 86920; 94150; C1776; C9290; J0131; J0171; J0690; J0735; J1580; J1885; J2250; J2270; J2370; J2405; J2710; J2795; J3010; J3370; J7050; J7120; L1830

== ENCOUNTER 2017-11-05 10:28 | Inpatient (IN) | payer MEDICARE, OTHER ==
[~2017-11-05] VITALS: Ht 170.2 cm; Wt 126.5 kg
[~2017-11-05 10:28] MED LIST: ATOR20TA15 PO; BACL10TA PO; BEDSIDE COMMODE1 MI1; BENA25CA4 PO; BUPR150CR PO; CPMMACHINE; CYCL10TA PO; DOXE50CA3 PO; FERR65TA2 PO; FLAX10002 PO; FLUT50SP EACH NARE; HYDR-3535 PO; MELA1TAB40; MONT10TA2 PO; NIAC500T67 PO; POTA-255 PO; WALKER WHEELS/F1 MIS
[2017-11-05] MEDS ORDERED: SODIUM CHLORID 0.9% 500 ML IV PRN (11:15)
[2017-11-05] MEDS ORDERED: METOPROLOL TARTRATE 25 MG TAB PO PRN (11:15)
[2017-11-05] MEDS ORDERED: CHLORHEXIDINE GLUCONATE 4% SOLN 120 ML BTL TOPICAL SCH (11:15)
[2017-11-05] MEDS ORDERED: LACTATED RINGER'S 1000 ML IV PRN (11:15)
[2017-11-05] MEDS ORDERED: POVIDONE IODINE 5% (ANTISEPSIS KIT) 4 APPLICATIONS EACH NARE PRN (11:15)
[2017-11-05] MEDS ORDERED: ceFAZolin 2 GM PREMIX 50 ML IV SCH (11:15)
[2017-11-05] MEDS ORDERED: CHLORHEXIDINE GLUCONATE 2 % 1 PACK (2 CLOTHS) TOPICAL PRN (11:15)
[2017-11-05] MEDS ORDERED: VANCOMYCIN 1000 MG/NS 250 ML (for <70 kg) IV SCH ×2 (11:15)
[2017-11-05] MEDS ORDERED: HYDR-3583 PO (11:37)
[2017-11-05] MEDS ORDERED: COUM1TAB PO (11:37)
[2017-11-05] MEDS ORDERED: ENAL20TA PO (11:41)
[2017-11-05] MEDS ORDERED: BUPIVACAINE LIPOSOME PF 1.3% 20 ML VIAL ONE (11:55)
[2017-11-05] MEDS ORDERED: ACETAMINOPHEN 1000 MG/100 ML 100 ML IV ONE (12:21)
[2017-11-05] MEDS ORDERED: FAMOTIDINE 20 MG/2 ML VIAL ONE (12:33)
[2017-11-05] MEDS ORDERED: GENTAMICIN SULFATE 80 MG/2 ML VIAL ONE (12:36)
[2017-11-05 12:39] LABS: AUTOMATED NEUTROPHIL # 4.9 TH/MM3 (1.8-7.7); BASOPHIL % 0.5 % (0.0-2.0); EOSINOPHIL # 0.2 TH/MM3 (0-0.4); EOSINOPHIL % 2.3 % (0.0-4.0); HEMATOCRIT 35.8 % (35.0-46.0); HEMO FLAGS DIFF FINAL; LYMPH % 19.6 % (9.0-44.0); LYMPHOCYTE # 1.4 TH/MM3 (1.0-4.8); MEAN CELL VOLUME 89.1 FL (80.0-100.0); MEAN CORPUSCULAR HEMOGLOBIN 29.1 PG (27.0-34.0); MEAN CORPUSCULAR HGB CONC 32.6 % (32.0-36.0); MONO % 9.3 % (0.0-8.0); NEUT % 68.3 % (16.0-70.0); PLATELET COUNT 219 TH/MM3 (150-450); RED BLOOD COUNT 4.02 MIL/MM3 (4.00-5.30); RED CELL DISTRIBUTION WIDTH 14.9 % (11.6-17.2); WHITE BLOOD COUNT 7.2 TH/MM3 (4.0-11.0)
[2017-11-05] MEDS ORDERED: ROPIVACAINE PERI-ARTICULAR INJECTION. P-ARTICULR SCH ×5 (13:00)
--- NOTE | 2017-11-05 15:00 | HHI.PR ---
Immediate Post Op Note Procedure Date: Nov 05, 2017 Pre Op Diagnosis: R Knee Severe OA;Morbid Obesity Post Op Diagnosis: Same Surgeon: Renato Dixon MD Doctor Of Nurse Anesthesia Practice(s): Heather Wesley PA-C Procedure: R TKR Complications: None Specimen(s) removed: None Estimated blood loss: 25cc Anesthesia: General, Regional Block, Local Drains: Hemovac Tourniquet time (min at mmHg) 51 mins @ 250 mm Hg Patient to: PACU Patient Condition: Good Implant/Devices: SEE IMPLANT LOG (if applicable) Date/Time of Procedure: SEE SURGICAL CARE RECORD Renato Dixon MD Nov 05, 2017 15:00
[2017-11-05] MEDS: LACTATED RINGER'S 1000 ML INJ 1,000 ML IV SCH (15:03)
[2017-11-05] MEDS ORDERED: DO NOT ADM ANY ANTICOAGULANT DRUGS PRN (15:09)
[2017-11-05] MEDS ORDERED: CPMMACHINE (15:11)
[2017-11-05] MEDS ORDERED: WALKER WHEELS/F1 MIS (15:12)
--- NOTE | 2017-11-05 15:13 | HHI.FF ---
Face to Face Verification Diagnosis: (1) Osteoarthritis of right knee Physical Therapy Gait training, Transfer training, bed to chair Knee: Protocol: Right, Full weight bearing Right LE Weight Bearing: WB as tolerated Left LE Weight Bearing: WB as tolerated Nursing RN: 3 days/week x 2 weeks Nursing: Dressing changes (clean incision with alcohol and apply dry, sterile dressing ) Additional Instructions PT/INR q Sunday and , call/text results to Heather GUZMAN [phone] Goal INR 1.5-1.8 I have seen patient Saige Barfield on 11/05/17. My clinical findings support the need for the requested home health care services because: Deconditioned w/ increased weakness I certify that my clinical findings support that this patient is homebound because: Post-op weakness Renato Dixon MD Nov 05, 2017 15:13
[2017-11-05] MEDS ORDERED: ONDANSETRON HCL 4 MG/2 ML VIAL IVP PRN (15:15)
[2017-11-05] MEDS ORDERED: ZOLPIDEM TARTRATE 5 MG TAB PO PRN (15:15)
[2017-11-05] MEDS ORDERED: MORPHINE SULFATE 8 MG/ML INJ IM PRN (15:15)
[2017-11-05] MEDS ORDERED: ALUMINUM/MAGNESIUM/SIMETH 30 ML CUP PO PRN (15:15)
[2017-11-05] MEDS ORDERED: Post-op Orders (for Pharmacy) XX ONE (15:15)
--- NOTE | 2017-11-05 16:17 | RADRPT ---
EXAM DATE/TIME: 11/05/2017 15:12 [place] COMPARISON: No previous studies available for comparison. INDICATIONS : Post op right knee. MEDICAL HISTORY : None. SURGICAL HISTORY : None. ENCOUNTER: Initial ACUITY: 1 day PAIN SCORE: Non-responsive. LOCATION: Right knee. FINDINGS: AP and lateral views of the knee following arthroplasty reveals a prosthesis in anatomic alignment. F racture is not appreciated. Surgical drain is evident CONCLUSION: Status post total knee arthroplasty. Raúl Marley MD FACR Board Certified Radiologist. This report was verified electronically.
[2017-11-05] MEDS ORDERED: *morphine SULFATE 8 MG/ML PERIprocedure ONLY ONE ×2 (16:18→16:38)
[2017-11-05 16:50] VITALS: BP 112/55; PULSE 81; RESP 18; TEMP 96.8; O2SAT 99
[2017-11-05] MEDS: BACLOFEN 10 MG TAB PO SCH (18:10)
[2017-11-05] MEDS: CYCLOBENZAPRINE HCL 10 MG TAB PO SCH (18:11)
[2017-11-05] MEDS: MONTELUKAST SODIUM 10 MG TAB PO SCH (20:41)
[2017-11-05] MEDS: ATORVASTATIN 20 MG TAB PO SCH (20:41)
[2017-11-05] MEDS: ACETAMINOPHEN/HYDROcodone 325 MG/10 MG TAB PO PRN (20:42)
[2017-11-05] MEDS: FERROUS SULFATE 325 MG (65 MG ELEMENTAL IRON) TAB PO SCH (20:42)
[2017-11-05] MEDS: buPROPion HCL 150 MG SUSTAINED RELEASE TAB PO SCH (20:42)
[2017-11-05] MEDS: diphenhydrAMINE HCL 25 MG CAP PO SCH (20:42)
[2017-11-05] MEDS: FLUTICASONE PROPIONATE 50 MCG/ACT 16 GM NASAL SPRAY EACH NARE SCH (21:00)
[2017-11-05 21:39] VITALS: BP 107/48; PULSE 105; RESP 16; TEMP 98.2; O2SAT 93
[2017-11-05 22:27] VITALS: O2SAT 93
[2017-11-06] VITALS (8 sets, daily range): BP systolic 82–110; BP diastolic 43–58; PULSE 87–90; RESP 16–18; TEMP 96.1–98.5; O2SAT 95–99
[2017-11-06] MEDS: DOXEPIN HCL 50 MG CAP PO SCH ×2 (00:22→20:39)
[2017-11-06] MEDS: LACTATED RINGER'S 1000 ML INJ 1,000 ML IV SCH ×2 (03:33→17:47)
[2017-11-06] MEDS: ACETAMINOPHEN/HYDROcodone 325 MG/10 MG TAB PO PRN ×4 (06:22→20:39)
--- NOTE | 2017-11-06 07:13 | PD.ORT.PN ---
Subjective Subjective Remarks POD#1 R TKR No c/o pain;no sob,no chest pain Patient wants to go home tomorrow Objective Vitals Vital Signs Date Time Temp Pulse Resp B/P (MAP) Pulse Ox O2 Delivery O2 Flow Rate FiO2 11/06/17 04:28 104/55 (71) 11/06/17 03:57 97.4 90 17 82/43 (56) 95 11/06/17 00:56 98.5 90 17 109/58 (75) 95 11/05/17 22:27 93 Nasal Cannula 2.00 11/05/17 21:39 98.2 105 16 107/48 (67) 93 11/05/17 16:50 96.8 81 18 112/55 (74) 99 11/05/17 16:30 98.5 79 18 129/59 (82) 96 Nasal Cannula 2 11/05/17 16:15 80 20 123/58 (79) 97 11/05/17 16:00 72 17 125/61 (82) 98 11/05/17 15:45 74 18 122/57 (78) 96 11/05/17 15:30 75 17 116/55 (75) 96 11/05/17 15:15 78 18 111/53 (72) 96 Nasal Cannula 2 11/05/17 15:10 98.4 80 20 122/54 (76) 95 Nasal Cannula 2 11/05/17 11:47 97.9 79 18 117/57 (77) 99 I/O 11/05/17 11/05/17 11/05/17 11/06/17 11/06/17 11/06/17 07:00 15:00 23:00 07:00 15:00 23:00 Intake Total 1660 ml Output Total 355 ml 30 ml Balance 1305 ml -30 ml Intake Oral 360 ml IV Total 1300 ml Output Urine Total 300 ml Drainage Total 30 ml 30 ml Estimated Blood Loss 25 ml # Voids 1 # Bowel Movements 0 Result Diagram: 11/05/17 1150 Imaging Last 24 hours Impressions Knee X-Ray 11/05/17 1503 Signed Impressions: Service Date/Time: Sunday, November 05, 2017 15:12 - CONCLUSION: Status post total knee arthroplasty. Raúl Marley MD Objective Remarks N/V intact Neg jen's sign;no calf tenderness Assessment & Plan Assessment and Plan Ortho stable PT/Rehab DVT prophylaxsis with coumadin,TEDS,sequentials Discharge home tomorrow;[facility] RN/PT Renato Dixon MD Nov 06, 2017 07:13
--- NOTE | 2017-11-06 08:46 | PD.CONS ---
HPI Service [facility] Consult Requested By Orthopedics service Reason for Consult Medical management Primary Care Physician Raúl Damon DO Diagnoses: History of Present Illness Patient is a very pleasant 67-year-old female with multiple medical problems history of hypertension hyperreactive airway disease hyperlipidemia, history of chronic osteoarthritis, chronic kidney disease, depression chronic pain who is admitted here under orthopedic services and underwent right total knee arthroplasty yesterday November 05. Patient apparently has been dealing with pain on the right knee over a year now to the point that lately has had to use a of a walker and a cane for long ambulation. Patient denies any fever or chest pains or shortness of breath. Admitted yesterday and underwent surgery and doing well this morning. [facility] for, management of chronic medical conditions. Patient is very pleasant and is very motivated with physical therapy. Good incentive spirometry efforts. Review of Systems Constitutional: DENIES: Diaphoretic episodes, Fatigue, Fever, Weight gain, Weight loss, Chills, Dizziness, Change in appetite, Night Sweats Endocrine: DENIES: Abnorml menstrual pattern, Heat/cold intolerance, Polydipsia , Polyuria, Polyphagia Eyes: DENIES: Blurred vision, Diplopia, Eye inflammation, Eye pain, Vision loss , Photosensitivity, Double Vision Ears, nose, mouth, throat: DENIES: Tinnitus, Hearing loss, Vertigo, Nasal discharge, Oral lesions, Throat pain, Hoarseness, Ear Pain, Running Nose, Epistaxis, Sinus Pain, Toothache, Odynophagia Respiratory: DENIES: Apneas, Cough, Snoring, Wheezing, Hemoptysis, Sputum production, Shortness of breath Cardiovascular: DENIES: Chest pain, Palpitations, Syncope, Dyspnea on Exertion , PND, Lower Extremity Edema, Orthopnea, Claudication Gastrointestinal: DENIES: Abdominal pain, Black stools, Bloody stools, Constipation, Diarrhea, Nausea, Vomiting, Difficulty Swallowing, Anorexia Genitourinary: DENIES: Abnormal vaginal bleeding, Dysmenorrhea, Dyspareunia, Sexual dysfunction, Urinary frequency, Urinary incontinence, Urgency, Hematuria , Dysuria, Nocturia, Vaginal discharge Musculoskeletal: COMPLAINS OF: Joint pain Integumentary: DENIES: Abnormal pigmentation, Pruritus, Rash, Nail changes, Breast masses, Breast skin changes, Nipple discharge Hematologic/lymphatic: DENIES: Bruising, Lymphadenopathy Immunologic/allergic: DENIES: Eczema, Urticaria Neurologic: DENIES: Abnormal gait, Headache, Localized weakness, Paresthesias, Seizures, Speech Problems, Tremor, Poor Balance Psychiatric: COMPLAINS OF: Depression (history of depression well-controlled with medications) Past Family Social History Allergies: Coded Allergies: Sulfa (Sulfonamide Antibiotics) (Unverified Allergy, Severe, rash, ) bacitracin (Unverified Allergy, Severe, blisters, 11/05/17) gramicidin D (Unverified Allergy, Severe, blisters, 11/05/17) neomycin (Unverified Allergy, Severe, blisters, 11/05/17) polymyxin B (Unverified Allergy, Severe, blisters, 11/05/17) Past Medical History Hypertension, chronic kidney disease stage III, hyperlipidemia, chronic osteoarthritis, depression Past Surgical History In the past Hysterectomy Tonsillectomy Right hand surgery for carpal tunnel syndrome Right elbow surgery been Right shoulder repair Left knee surgery Reported Medications Currently in-house she is on Coumadin postop and morphine when necessary for pain, [place] Home medications - continued here Vasotec 20 mg daily Lipitor 20 mg daily buproprion 150 mg daily Doxepin Singulair Fluticasone Baclofen Active Ordered Medications See EMR Family History Noncontributory Social History History of smoking in her 30s quit 30 years ago Denies alcohol use No substance abuse Physical Exam Vital Signs Vital Signs Date Time Temp Pulse Resp B/P (MAP) Pulse Ox O2 Delivery O2 Flow Rate FiO2 11/06/17 04:28 104/55 (71) 11/06/17 03:57 97.4 90 17 82/43 (56) 95 11/06/17 00:56 98.5 90 17 109/58 (75) 95 11/05/17 22:27 93 Nasal Cannula 2.00 11/05/17 21:39 98.2 105 16 107/48 (67) 93 11/05/17 16:50 96.8 81 18 112/55 (74) 99 11/05/17 16:30 98.5 79 18 129/59 (82) 96 Nasal Cannula 2 11/05/17 16:15 80 20 123/58 (79) 97 11/05/17 16:00 72 17 125/61 (82) 98 11/05/17 15:45 74 18 122/57 (78) 96 11/05/17 15:30 75 17 116/55 (75) 96 11/05/17 15:15 78 18 111/53 (72) 96 Nasal Cannula 2 11/05/17 15:10 98.4 80 20 122/54 (76) 95 Nasal Cannula 2 11/05/17 11:47 97.9 79 18 117/57 (77) 99 Physical Exam GENERAL: Awake and alert, in no apparent distress. SKIN: No rashes, ecchymoses or lesions. Cool and dry. HEAD: Atraumatic. Normocephalic. No temporal or scalp tenderness. EYES: Pupils equal round and reactive. Extraocular motions intact. No scleral icterus. No injection or drainage. ENT: Nose without bleeding,. Throat without erythema. Airway patent. NECK: Trachea midline. No JVD or lymphadenopathy. Supple, nontender, no meningeal signs. CARDIOVASCULAR: Regular rate and rhythm without murmurs, gallops, or rubs. RESPIRATORY: Clear to auscultation. Breath sounds equal bilaterally. No wheezes , rales, or rhonchi. GASTROINTESTINAL: Abdomen soft, non-tender, nondistended. No hepato-splenomegaly , or palpable masses. No guarding. MUSCULOSKELETAL: Extremities without clubbing, cyanosis, or edema. No joint tenderness, effusion, or edema noted. No calf tenderness. Negative Homans sign bilaterally. Right lower extremity with post op gross dressing in place No calf swelling or tenderness NEUROLOGICAL: Awake and alert. Cranial nerves II through XII intact. Motor and sensory grossly within normal limits. Five out of 5 muscle strength in all muscle groups. Normal speech. Laboratory Laboratory Tests Test 11/05/17 11:50 White Blood Count 7.2 Red Blood Count 4.02 Hemoglobin 11.7 Hematocrit 35.8 Mean Corpuscular Volume 89.1 Mean Corpuscular Hemoglobin 29.1 Mean Corpuscular Hemoglobin Concent 32.6 Red Cell Distribution Width 14.9 Platelet Count 219 Mean Platelet Volume 9.3 Neutrophils (%) (Auto) 68.3 Lymphocytes (%) (Auto) 19.6 Monocytes (%) (Auto) 9.3 Eosinophils (%) (Auto) 2.3 Basophils (%) (Auto) 0.5 Neutrophils # (Auto) 4.9 Lymphocytes # (Auto) 1.4 Monocytes # (Auto) 0.7 Eosinophils # (Auto) 0.2 Basophils # (Auto) 0.0 CBC Comment DIFF FINAL Differential Comment Hematology Comments Result Diagram: 11/05/17 1150 Imaging Last Impressions Knee X-Ray 11/05/17 1503 Signed Impressions: Service Date/Time: Sunday, November 05, 2017 15:12 - CONCLUSION: Status post total knee arthroplasty. Raúl Marley MD Assessment and Plan Assessment and Plan 67-year-old female [facility] consulted for medical management Status post right total knee arthroplasty. Management per orthopedic services. When necessary pain meds per primary service. PTOT daily. History of chronic osteoarthritis. Continue on baclofen. Hypertension continue on Vasotec 20 mg daily. Adjust dose Hyperlipidemia continue Lipitor 20 mg daily. Niacin. History of depression. Continue on doxepin and Wellbutrin. History of COPD/hyperreactive airway disease/rhinitis chronic. Continue on Singulair. Continue on nasal spray fluticasone History of chronic kidney disease stage III. Creatinine near baseline. Outpatient follow-up with her metal dresser Dr. Ruiz. Patient on Coumadin for DVT prophylaxis Discharge planning manager of case involved- skilled rehabilitation facility versus. Home with home PT per patient's preference. Thank you for this consult we'll follow patient in-house with you Anibal Littlejohn MD Nov 06, 2017 08:46
[2017-11-06] MEDS: CYCLOBENZAPRINE HCL 10 MG TAB PO SCH ×3 (08:59→17:41)
[2017-11-06] MEDS: BACLOFEN 10 MG TAB PO SCH ×3 (08:59→17:41)
[2017-11-06] MEDS: FERROUS SULFATE 325 MG (65 MG ELEMENTAL IRON) TAB PO SCH ×2 (08:59→20:39)
[2017-11-06] MEDS: ENALAPRIL MALEATE 10 MG TAB PO SCH (08:59)
[2017-11-06 09:42] LABS: HEMATOCRIT 26.7 % (35.0-46.0); REVIEW FLAG FINAL
[2017-11-06 09:51] LABS: INTERNATIONAL NORMALIZED RATIO 1.1 RATIO; PROTHROMBIN TIME - PATIENT 11.6 SEC (9.8-11.6)
[2017-11-06] MEDS: WARFARIN SOD 5 MG TAB PO SCH (15:46)
--- NOTE | 2017-11-06 17:13 | MP ---
cc: DARRIN CHU MD, JEFFREY D. M.D. MAI, CHRISTOPHER C. MD SHAMSIN, AHMAD MD GILLESPY,ROBERTO CARLOS SALAZAR,DR. MONTAÑO (please fax to all doctors) DATE OF SURGERY 11/05/17 PREOPERATIVE DIAGNOSIS 1. Right knee severe tricompartmental osteoarthritis, genu valgus deformity. 2. Morbid obesity 3. Status post left total knee arthroplasty May 03, 2017 POSTOPERATIVE DIAGNOSIS 1. Right knee severe tricompartmental osteoarthritis, genu valgus deformity. 2. Morbid obesity 3. Status post left total knee arthroplasty May 03, 2017 PROCEDURE Right total knee arthroplasty - cemented Biomet vanguard SURGEON Kristin Dixon MD ASSESSMENT ANGE Latif ESTIMATED BLOOD LOSS 25 mL ANESTHESIA General, regional abductor canal block, intra-articular local TOURNIQUET TIME 51 minutes at 250 mmHg SPECIMEN None. COMPLICATIONS None DRAINS Two CONDITION Stable PLAN OF ACTIVITIES Per orders. PROCEDURE IN DETAIL My assistant professor of mathematics, Heather Wesley, ANGE, was present for the entire surgical case. She was medically necessary for entire case because of the complexity of the case and to facilitate the performance of the procedure. The CARVER AND CHECKERER SPECIALS at the back table was not a skill set in this case to manipulate the instruments e.g. the multiple different types of soft tissue tractors, trial implants and permanent implants. The patient was brought to the operating room and had satisfactory anesthesia by Dr. Dockery, Department of Anesthesia. Right lower extremity was prepped and draped in usual sterile manner. Because of the patient's morbid obesity, great care was made to protect all pressure points. The right lower extremity was prepped, draped in usual sterile manner. The extremity was exsanguinated, elevation tourniquet inflated to 250 mmHg. Small anterior exposure to the knee was made. Primary capsulotomy performed. Patient found to have severe tricompartmental osteoarthritis involving all three compartments of the knee with a moderate degree of synovitis. The remaining portions of the lateral and medial meniscus were removed. Anterior cruciate ligament was removed. Posterior cruciate ligament was preserved. Prepatellar fat pad was surgically excised. Using the Biomet vanguard total knee arthroplasty system, IM guide was used for the distal femur with a 5 degree valgus cut to accept a 62.5 mm femoral component. Extramedullary guide was used for the tibia to accept a 71 mm tibial component. A 12 mm insert was found to be stable and with good balance in the knee with flexion/extension. The posterior osteophytes were removed using curved osteotomes. Trial reduction was made. Undersurface of the patella was removed to accept a 31-mm three-pronged patellar prosthesis. Trial reduction was made. Patient was found to have excellent stability of the knee and satisfactory range of motion. All trial components were removed. Preparation for bone cementing was made. Bone cement was allowed to harden for 13 minutes. The knee was injected with 100 mL of local anesthesia provided by the Department of Pharmacy. All three components were cemented. First the tibial component followed by the femoral component and then the patella component. Bone cement was allowed to harden for 13 minutes. A 12 x 71 mm polyethylene plastic was assembled onto the tibial tray and appropriately locked to the tray with a locking pin. Tourniquet was deflated. All bleeders were coagulated. The wound was irrigated with 4000 mL of sterile saline antibiotic solution. It was closed over 2 Hemovac drains hooked up to automatic type system. The wound was closed in routine layers. The capsule dissection mechanism was repaired using multiple interrupted #2 Tycron sutures. Subcuticular layers of 0 Vicryl, 2-0 Vicryl. Skin was approximated with skin kaley. Sterile dressing was applied. The patient tolerated the procedure well and went to recovery room in stable and satisfactory condition. MD BELINDA Drew/ /2:48 PM /4:43 PM
[2017-11-06] MEDS: FLUTICASONE PROPIONATE 50 MCG/ACT 16 GM NASAL SPRAY EACH NARE SCH (20:38)
[2017-11-06] MEDS: MONTELUKAST SODIUM 10 MG TAB PO SCH (20:38)
[2017-11-06] MEDS: diphenhydrAMINE HCL 25 MG CAP PO SCH (20:38)
[2017-11-06] MEDS: buPROPion HCL 150 MG SUSTAINED RELEASE TAB PO SCH (20:39)
[2017-11-06] MEDS: ATORVASTATIN 20 MG TAB PO SCH (20:39)
[2017-11-07 00:17] VITALS: BP 108/60; PULSE 83; RESP 18; TEMP 97.3; O2SAT 98
[2017-11-07] MEDS: LACTATED RINGER'S 1000 ML INJ 1,000 ML IV SCH (04:33)
[2017-11-07 07:05] LABS: INTERNATIONAL NORMALIZED RATIO 1.1 RATIO; PROTHROMBIN TIME - PATIENT 11.3 SEC (9.8-11.6)
--- NOTE | 2017-11-07 07:48 | PD.ORT.PN ---
Subjective Subjective Remarks pt doing better, had a good night of rest last night would like to go home today Objective Vitals Vital Signs Date Time Temp Pulse Resp B/P (MAP) Pulse Ox O2 Delivery O2 Flow Rate FiO2 11/07/17 00:17 97.3 83 18 108/60 (76) 98 Automatic Cuff 11/06/17 20:25 97.8 90 18 91/51 (64) 96 11/06/17 16:00 96.1 89 16 110/51 (70) 99 11/06/17 12:00 97.0 88 16 108/47 (67) 98 11/06/17 09:29 99 11/06/17 08:00 97.0 87 16 100/47 (64) 97 I/O 11/06/17 11/06/17 11/06/17 11/07/17 11/07/17 11/07/17 07:00 15:00 23:00 07:00 15:00 23:00 Intake Total 240 ml 480 ml 480 ml Output Total 30 ml Balance 210 ml 480 ml 480 ml Intake Oral 240 ml 480 ml 480 ml Drainage Total 30 ml # Voids 0 1 1 # Bowel Movements 0 0 0 Result Diagram: 11/06/17 0713 Other Results Laboratory Tests Test 11/07/17 06:00 Prothromb Time International Ratio 1.1 RATIO Prothrombin Time 11.3 SEC (9.8-11.6) Imaging Last 24 hours Impressions Knee X-Ray 11/05/17 1503 Signed Impressions: Service Date/Time: Sunday, November 05, 2017 15:12 - CONCLUSION: Status post total knee arthroplasty. Raúl Marley MD Objective Remarks resting comfortably, CPAP machine on right knee dressing dry and intact N/V intact Neg jen's sign;no calf tenderness Assessment & Plan Assessment and Plan POD #2 s/p R TKA check CBC this am, BP running a bit low, if stable okay to discharge Ferrous sulfate 325 mg bid x 4 weeks for surgical blood loss anemia Ortho stable PT/Rehab coumadin rx and norco rx in chart discharge home today with home health care Heather Wesley Nov 07, 2017 07:48
[2017-11-07 08:00] VITALS: BP 121/55; PULSE 94; RESP 18; TEMP 96.5; O2SAT 96
[2017-11-07] MEDS: ACETAMINOPHEN/HYDROcodone 325 MG/10 MG TAB PO PRN ×3 (08:18→17:47)
[2017-11-07] MEDS: ENALAPRIL MALEATE 10 MG TAB PO SCH (08:18)
[2017-11-07] MEDS: CYCLOBENZAPRINE HCL 10 MG TAB PO SCH ×3 (08:19→16:22)
[2017-11-07] MEDS: BACLOFEN 10 MG TAB PO SCH ×3 (08:19→16:23)
[2017-11-07] MEDS: FERROUS SULFATE 325 MG (65 MG ELEMENTAL IRON) TAB PO SCH (08:19)
[2017-11-07 11:29] LABS: HEMATOCRIT 28.2 % (35.0-46.0); MEAN CELL VOLUME 91.7 FL (80.0-100.0); MEAN CORPUSCULAR HEMOGLOBIN 30.9 PG (27.0-34.0); MEAN CORPUSCULAR HGB CONC 33.7 % (32.0-36.0); PLATELET COUNT 201 TH/MM3 (150-450); RED BLOOD COUNT 3.07 MIL/MM3 (4.00-5.30); RED CELL DISTRIBUTION WIDTH 15.3 % (11.6-17.2); REVIEW FLAG FINAL; WHITE BLOOD COUNT 8.2 TH/MM3 (4.0-11.0)
[2017-11-07 12:00] VITALS: BP_SYST 101; BP_SYST 144; BP_DIAS 65; BP_DIAS 96; PULSE 80; PULSE 94; RESP 18; TEMP 96.5; TEMP 97.6; O2SAT 96; O2SAT 98
--- NOTE | 2017-11-07 12:27 | HHI.PR ---
Subjective Remarks doing very with PT pain controlled Objective Vitals Vital Signs Date Time Temp Pulse Resp B/P (MAP) Pulse Ox O2 Delivery O2 Flow Rate FiO2 11/07/17 09:19 16 11/07/17 08:00 96.5 94 18 121/55 (77) 96 11/07/17 00:17 97.3 83 18 108/60 (76) 98 Automatic Cuff 11/06/17 20:25 97.8 90 18 91/51 (64) 96 11/06/17 16:00 96.1 89 16 110/51 (70) 99 I/O 11/06/17 11/06/17 11/06/17 11/07/17 11/07/17 11/07/17 07:00 15:00 23:00 07:00 15:00 23:00 Intake Total 240 ml 480 ml 480 ml Output Total 30 ml Balance 210 ml 480 ml 480 ml Intake Oral 240 ml 480 ml 480 ml Drainage Total 30 ml # Voids 0 1 1 # Bowel Movements 0 0 0 Result Diagram: 11/07/17 1115 Imaging Last Impressions Knee X-Ray 11/05/17 1503 Signed Impressions: Service Date/Time: Sunday, November 05, 2017 15:12 - CONCLUSION: Status post total knee arthroplasty. Raúl Marley MD Objective Remarks awake and alert lungs no rales regular rhythm knee- post op dressing in place no calf tenderness moves all extremities spontaneously Procedures 11/06- right TKA A/P Assessment and Plan 67-year-old female [facility] consulted for medical management Status post right total knee arthroplasty. 11/06 Management per orthopedic services. PTOT daily. very motivated. [place] prn for pain History of chronic osteoarthritis. Continue on baclofen. Hypertension continue on Vasotec 20 mg daily. Hyperlipidemia continue Lipitor 20 mg daily. Niacin. History of depression. Continue on doxepin and Wellbutrin. History of COPD/hyperreactive airway disease/rhinitis chronic. Continue on Singulair. Continue on nasal spray fluticasone History of chronic kidney disease stage III. Creatinine near baseline. Outpatient follow-up with her laborer beam house Dr. Ruiz. Patient on Coumadin for DVT prophylaxis DC today per orthopedics Nurse communications clerk arrange for home health care nursing and PT will ff UP with PCP- Dr. Damon FF up with Orthopedics as OP Anibal Littlejohn MD Nov 07, 2017 12:27
[2017-11-07 14:43] VITALS: RESP 16
[2017-11-07] MEDS: WARFARIN SOD 5 MG TAB PO SCH (16:22)
[2017-11-07 18:07] VITALS: O2SAT 96
== END 2017-11-07 17:58 | disposition home health service (06) | DRG 470 ==
LOC: HSDI 10:28 → EDSTATUS 12:30 → N06A 16:58
PROVIDERS: ADMIT Orthopaedic Surgery Orthopaedic Surgery of the Spine; ATTEND Orthopaedic Surgery Orthopaedic Surgery of the Spine
PROC: 3E0T3BZ Introduction of Anesthetic Agent into Peripheral Nerves and Plexi, Percutaneous Approach (ICD-10-PCS; 2017-11-05)
PROC: 0SRC0J9 Replacement of Right Knee Joint with Synthetic Substitute, Cemented, Open Approach (ICD-10-PCS; principal; 2017-11-05 12:53)
DX: M17.11 Unilateral primary osteoarthritis, right knee (principal); N18.3 Chronic kidney disease, stage 3 (moderate); J44.9 Chronic obstructive pulmonary disease, unspecified; D62 Acute posthemorrhagic anemia; Z68.41 Body mass index [BMI] 40.0-44.9, adult; E66.01 Morbid (severe) obesity due to excess calories; M21.061 Valgus deformity, not elsewhere classified, right knee; I12.9 Hypertensive chronic kidney disease with stage 1 through stage 4 chronic kidney disease, or unspecified chronic kidney disease; E78.5 Hyperlipidemia, unspecified; G89.29 Other chronic pain; F32.9 Major depressive disorder, single episode, unspecified; J31.0 Chronic rhinitis; Z79.899 Other long term (current) drug therapy; Z96.652 Presence of left artificial knee joint; Z87.891 Personal history of nicotine dependence
CPT/HCPCS: 73560; 85014; 85018; 85025; 85027; 85610; 86850; 86900; 86901; 86920; 94150; C1776; C9290; J0131; J0690; J0735; J1580; J1885; J2270; J2795; J3370; J7050; J7120; L1830